=== PATIENT | female | born 1960 | race Caucasian/White ===

== ENCOUNTER 2021-04-29 07:57 | Day surgery (SDC) | payer BC ==
[2021-04-25 18:18] VITALS: BMI 29.9
[~2021-04-29 07:57] MED LIST: BUPIVACAINE HCL/PF 0.25% (2.5MG/ML) 10 ML VIAL IJ ONE
[2021-04-29] MEDS ORDERED: oxyCODONE HCL 5 MG TABLET PO PRN (09:40)
[2021-04-29] MEDS ORDERED: IBUPROFEN 800 MG/8 ML IJ IVPB PRN (09:40)
[2021-04-29] MEDS ORDERED: ONDANSETRON 4 MG/2 ML VIAL IVPUSH PRN (09:40)
[2021-04-29] MEDS ORDERED: LACTATED RINGERS SOLUTION 1,000 ML IV SCH (09:45)
[2021-04-29] MEDS ORDERED: BUPIVACAINE HCL/PF 2.5 MG/ML - 30 ML VIAL IJ ONE (10:00)
[2021-04-29] MEDS ORDERED: PROPOFOL 20 ML ONE (10:02)
[2021-04-29] MEDS ORDERED: ONDANSETRON 4 MG/2 ML VIAL ONE (10:02)
[2021-04-29] MEDS ORDERED: ceFAZolin SODIUM 1 GM VIAL ONE (10:02)
[2021-04-29] MEDS ORDERED: DEXAMETHASONE SOD PHOSPHATE 4 MG/1 ML VIAL ONE (10:02)
[2021-04-29] MEDS ORDERED: MIDAZOLAM HCL 2 MG/2 ML SINGLE DOSE VIAL ONE (10:02)
[2021-04-29] MEDS ORDERED: BUPIVACAINE HCL/PF 0.25% (2.5MG/ML) 10 ML VIAL IJ ONE (10:46)
[2021-04-29] MEDS ORDERED: IBUPROFEN 800 MG/8 ML IJ IVPB ONE (11:34)
[2021-04-29 13:05] VITALS: TEMP 97.6
[2021-04-29] MEDS ORDERED: oxyCODONE HCL 5 MG TABLET ONE (13:06)
[2021-04-29 14:13] VITALS: BP 125/77; PULSE 85
== END 2021-04-29 14:13 | disposition home or self-care (01) ==
LOC: FASU 07:57
PROVIDERS: ATTEND Orthopaedic Surgery
PROC: 0SBC4ZZ Excision of Right Knee Joint, Percutaneous Endoscopic Approach (ICD-10-PCS; 2021-04-29)
PROC: 0SBC4ZZ Excision of Right Knee Joint, Percutaneous Endoscopic Approach (ICD-10-PCS; principal; 2021-04-29 10:25)
DX: S83.241A Other tear of medial meniscus, current injury, right knee, initial encounter (principal); S83.281A Other tear of lateral meniscus, current injury, right knee, initial encounter; S83.8X1A Sprain of other specified parts of right knee, initial encounter; M65.861 Other synovitis and tenosynovitis, right lower leg; X58.XXXA Exposure to other specified factors, initial encounter; Y93.9 Activity, unspecified; Y92.9 Unspecified place or not applicable
CPT/HCPCS: 82962; 94760